=== PATIENT | female | born 1950 | race Two or more races ===

== ENCOUNTER → 2022-01-14 | Emergency (ER) | payer OTHER ==
[~2022-01-14] VITALS: Ht 152.4 cm; Wt 58.1 kg
== END | disposition left against medical advice (07) ==
LOC: ER 14:01
DX: R10.84 Generalized abdominal pain (principal)

== ENCOUNTER 2023-02-01 09:14 | Emergency (ER) | payer OTHER ==
[~2023-02-01] VITALS: Ht 149.9 cm; Wt 58.5 kg
[2023-02-01] MEDS ORDERED: PEPCID AC20 MG PO ×2 (09:32→10:33)
[2023-02-01] MEDS ORDERED: PROTONIX20 MG PO (09:33)
[2023-02-01] MEDS ORDERED: BACTRIM DS TAB1 EACH PO (10:33)
== END 2023-02-01 10:39 | disposition home or self-care (01) ==
LOC: ER 09:14
PROVIDERS: General Practice
DX: N39.0 Urinary tract infection, site not specified (principal); Z91.013 Allergy to seafood
CPT/HCPCS: 36415; 96372; 99284; J0696

== ENCOUNTER 2024-01-08 07:06 | Outpatient (CLI) | payer OTHER ==
[~2024-01-08 07:06] MED LIST: BACTRIM DS TAB1 EACH PO; PEPCID AC20 MG PO; PROTONIX20 MG PO
== END 2024-01-08 07:11 | disposition home or self-care (01) ==
LOC: RX STUDY 07:06
PROVIDERS: ATTEND General Practice
DX: R13.10 Dysphagia, unspecified (principal)